=== PATIENT | female | born 1995 | race Caucasian/White ===

== ENCOUNTER 2020-03-11 08:37 | Emergency (ER) | payer OTHER ==
[~2020-03-11] VITALS: Ht 172.7 cm; Wt 72.6 kg
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
[2020-03-11 09:25] LABS: *URINE HCG, QUAL NEG (NEGATIVE)
[2020-03-11] MEDS ORDERED: IBUPROFEN 600 MG TABLET PO ONE (09:45)
[2020-03-11] MEDS ORDERED: LIDOCAINE 1%-EPI 1:100,000 20 ML VIAL IJ ONE (09:45)
[2020-03-11] MEDS ORDERED: IBUPROFEN 600 MG TABLET ONE (09:56)
[2020-03-11] MEDS ORDERED: LIDOCAINE 1%-EPI 1:100,000 20 ML VIAL ONE (09:59)
--- NOTE | 2020-03-11 10:01 | NUR ---
Dr. Nolan at bedside, suturing laceration.
[2020-03-11] MEDS ORDERED: IBUP-1955 PO (10:34)
--- NOTE | 2020-03-11 10:42 | NUR ---
Per Dr. Nolan, pt stable for discharge. DC instructions and prescriptions given and reviewed with pt. Verbalized understanding. Tooth placed in preserving fluid. Dr. Nolan instructed pt to follow up with a dentist. Pt left ER in stable condition.
[2020-03-11 10:45] VITALS: BP 109/81
== END 2020-03-11 10:46 | disposition home or self-care (01) ==
LOC: ER 08:37
DX: S01.521A Laceration with foreign body of lip, initial encounter (principal); S02.5XXA Fracture of tooth (traumatic), initial encounter for closed fracture; S03.2XXA Dislocation of tooth, initial encounter; V00.141A Fall from scooter (nonmotorized), initial encounter; Y93.I9 Activity, other involving external motion; Y92.89 Other specified places as the place of occurrence of the external cause; Y99.8 Other external cause status; S02.2XXA Fracture of nasal bones, initial encounter for closed fracture
CPT/HCPCS: 12051; 70450; 70486; 72125; 84703; 99285; J3490; A4217; A4663

== ENCOUNTER 2020-03-12 16:30 | Emergency (ER) | payer OTHER ==
[~2020-03-12] VITALS: Ht 172.7 cm; Wt 72.6 kg
[~2020-03-12 16:30] MED LIST: IBUP-1955 PO
--- NOTE | 2020-03-12 16:51 | NUR ---
Patient discharged to home in stable condition. Written and verbal after care instructions given. Patient verbalizes understanding of instructions. Stressed follow up or return to ER for worsening s/s.
== END 2020-03-12 16:51 | disposition home or self-care (01) ==
LOC: ER 16:30
DX: S01.511D Laceration without foreign body of lip, subsequent encounter (principal); L08.9 Local infection of the skin and subcutaneous tissue, unspecified; V00.141D Fall from scooter (nonmotorized), subsequent encounter
CPT/HCPCS: A4663

== ENCOUNTER 2020-03-19 09:34 | Emergency (ER) | payer OTHER ==
[~2020-03-19] VITALS: Ht 172.7 cm; Wt 72.6 kg
--- NOTE | 2020-03-19 09:58 | NUR ---
Sutures removed by DR. Meng
--- NOTE | 2020-03-19 10:02 | NUR ---
Pt discharged in stable condition, DC instruction given and reviewed with pt, verbalized understanding. Left er with steady gait
== END 2020-03-19 10:06 | disposition home or self-care (01) ==
LOC: ER 09:36
DX: S01.511D Laceration without foreign body of lip, subsequent encounter (principal); X58.XXXD Exposure to other specified factors, subsequent encounter
CPT/HCPCS: A4663